=== PATIENT | female | born 1940 | race Caucasian/White ===

== ENCOUNTER 2019-05-29 18:27 | Inpatient (IN) | payer OTHER, MEDICAID ==
[~2019-05-29] VITALS: Ht 172.7 cm; Wt 70.3 kg
[2019-05-29 18:33] VITALS: BP 162/87
[2019-05-29 19:01] LABS: ABSOLUTE LYMPHOCYTES 1.1 thou/uL (0.8-5.3); ABSOLUTE MONOCYTES 1.1 thou/uL (0.0-1.2); ABSOLUTE NEUTROPHILS 9.1 thou/uL (1.6-8.1); BASOPHILS 0.3 %; EOSINOPHILS 0.4 %; HEMATOCRIT 38.7 % (37.0-47.0); HEMOGLOBIN 13.1 gm/dL (12.0-15.0); LYMPHOCYTES 9.8 %; MCH 29.8 pg (26.0-34.0); MCHC 33.9 g/dL (28.0-37.0); MONOCYTES 9.7 %; MPV 9.2 fl. (7.2-11.1); NUCLEATED RBCS 0 /100WBC; PLATELET COUNT* 105 thou/uL (150-400); POLYS 79.8 %; WBC 11.4 thou/uL (4.0-11.0)
[2019-05-29 19:11] LABS: ANION GAP 12 mmol/L (7-16); BUN 15 mg/dL (7-18); CALCIUM 8.8 mg/dL (8.5-10.1); CHLORIDE 103 mmol/L (98-107); CO2 25 mmol/L (21-32); CREATININE 0.8 mg/dL (0.6-1.3); GLUCOSE 113 mg/dL (70-99); INR 1.2; POTASSIUM 3.4 mmol/L (3.5-5.1); PROTIME 12.5 Seconds (9.20-11.50); SODIUM 140 mmol/L (136-145)
[2019-05-29 19:25] LABS: ALBUMIN 3.3 g/dL (3.4-5.0); ALKALINE PHOSPHATASE 358 U/L (46-116); CK-MB MASS 2.1 ng/mL (<0.5-3.6); LIPASE 40 U/L (73-393); MAGNESIUM 1.9 mg/dL (1.8-2.4); NT-PRO BRAIN NAT PEPTIDE 1201 pg/mL (<300); SGOT 130 U/L (15-37); SGPT 245 U/L (30-65); TOTAL PROTEIN 6.7 g/dL (6.4-8.2); TROPONIN-I LEVEL <0.06 ng/mL (<0.06)
--- NOTE | 2019-05-29 19:56 | NUR ---
DILTIAZEM GTT STARTED.
[2019-05-29 20:24] LABS: URINE BLOOD 1+ (Negative); URINE CLARITY CLEAR; URINE COLOR YELLOW; URINE GLUCOSE-RANDOM NEGATIVE (Negative); URINE KETONES NEGATIVE (Negative); URINE LEUKOCYTES-REFLEX TRACE (Negative); URINE NITRITE-REFLEX NEGATIVE (Negative); URINE PROTEIN NEGATIVE (Negative); URINE UROBILINOGEN 0.2 E.U./dl (0.2-1.0)
[2019-05-29 20:25] LABS: URINE BILIRUBIN 2+ (Negative)
[2019-05-29 20:27] LABS: ICTOTEST (BILI CONFIRMATORY) Positive (Negative)
[2019-05-29 20:33] LABS: BACTERIA-REFLEX 1-9 Few /HPF (None Seen); CASTS None Seen /LPF (None Seen); CRYSTALS None Seen /LPF (None Seen); SQUAMOUS 0-3 Few /LPF (0-3); URINE RBC None Seen /HPF (0-2); URINE WBC-REFLEX None Seen /HPF (0-5)
--- NOTE | 2019-05-29 22:30 | NUR ---
PT AWAITING BED AVAILABILITY, HELD IN ER. PT WAS TRANSFERED TO A HOSPITAL BED FOR MORE COMFORT. DILTIAZEM GTT INFUSING, WILL CONTINUE TO MONITOR.
[2019-05-30 01:12] LABS: HEMATOCRIT 38.8 % (37.0-47.0); MCH 29.9 pg (26.0-34.0); MCHC 33.5 g/dL (28.0-37.0); MCV 89.2 fL (80.0-100.0); MPV 10.1 fl. (7.2-11.1); RBC 4.35 mil/uL (4.20-5.00); RDW-CV 14.2 % (10.5-14.5); WBC 10.2 thou/uL (4.0-11.0)
[2019-05-30 01:47] LABS: ALBUMIN 3.2 g/dL (3.4-5.0); CALCIUM 8.8 mg/dL (8.5-10.1); CREATININE 0.8 mg/dL (0.6-1.3); MAGNESIUM 2.1 mg/dL (1.8-2.4); PHOSPHORUS* 2.9 mg/dL (2.5-4.9); POTASSIUM 3.6 mmol/L (3.5-5.1); TOTAL BILIRUBIN 6.9 mg/dL (<0.1-1.0)
[2019-05-30 01:52] VITALS: BP 108/45
--- NOTE | 2019-05-30 07:24 | NUR ---
REPORT TAKEN FROM PATIENCE. SHE UNDERSTANDS ADMISSION AND IS BOARDED. SHE HAS BEEN TO THE RESTROOM THIS AM AND IS REGULATED ON CARDIZEM.
--- NOTE | 2019-05-30 07:41 | NUR ---
NEW ORDERS OBTAINED FROM DR WANG. SURGERY HAS BEEN CONTACTED IN REGARDS TO ERCP ORDER. RADIOLOGY HAS ALSO BEEN NOTIFIED.
--- NOTE | 2019-05-30 08:55 | NUR ---
PATIENT HAS BEEN SEEN BY THE [facility] PHYSICIAN AND BY THE CARDIOLOGY FIRE PREVENTION CAPTAIN.
--- NOTE | 2019-05-30 11:45 | NUR ---
REPORT CALLED TO PACU. PATIENT WAS TAKEN BY TRANSPORTER FOR TESTING AND THEN ON TO SURGERY PER DR WANG. SHE WILL NOT RETURN TO THE ER.
[2019-05-30 11:47] VITALS: BP 143/81
--- NOTE | 2019-05-30 12:21 | EKG ---
[place] [address] ELECTROCARDIOGRAM REPORT Name: AMERICARAVEN Mart Room: [place] [address] ADM IN ..#: [id number] Admission: 05/29/19 Attend Phys: Cameron Orellana MD Discharge: Date of : 36 Report #: [id number] THIS REPORT FOR: //name// [facility] ED Test Date: 2019-05-29 Test Time: 18:37:12 Pat Name: RAVEN CROSS Department: Room: [facility] Gender: F [employer]p [employer]: : 1940 Requested By: Aj Tinoco Order Number: [id number] MD: Gray Ellis Measurements Intervals [place] Rate: 102 P: VA: QRS: -12 QRSD: 72 T: 173 QT: 309 QTc: 403 Interpretive Statements Atrial fibrillation Low voltage, precordial leads Abnormal R-wave progression, early transition Borderline repolarization abnormality No previous ECG available for comparison Electronically Signed On 05-30-2019 12:21:34 CDT by Gray Ellis [email or web address] <ELECTRONICALLY SIGNED> By: Gray Ellis MD, [facility] 05/30/19 [phone] Gray Ellis MD, [facility] /EPI
--- NOTE | 2019-05-30 16:45 | NUR ---
JADA BECERRA GI NBED. SHE DENIES PAIN. AFIB ON MONITOR AND CARDIZEM INFUCING AT 2.5 ML PER HOUR. ECHO IN PROGRESS. AWAITING MEDICATION ORDERS FROM CARIOLOGY FOR AFIB MANAGEMENT. VITAL SIGNS OTHERWISE STABLE. ADMISSION ASSESSMENT AND HISTORY COMPLETED.
--- NOTE | 2019-05-30 17:25 | 2DMMODE ---
[place] [address] 2 D/M-MODE ECHOCARDIOGRAM Name: AMERICARAVEN M Room: [address] IN [facility]#: [id number] Admission: 05/29/19 Attend Phys: Cameron Orellana, Discharge: Date of : 36 Date of Service: 05/30/19 1725 Report #: [id number] THIS REPORT FOR: //name// APPROVED REPORT Study performed: 05/30/2019 16:06:26 EXAM: Comprehensive 2D, Doppler, and color-flow Echocardiogram Patient Location: In-Patient Room #: [facility] Status: routine BSA: 1.86 HR: 71 bpm BP: 143/81 mmHg Rhythm: Atrial Fibrillation Other Information Study Quality: Good Indications Atrial Fibrillation 2D Dimensions IVSd: 13.53 (7-11mm) LVOT Diam: 19.69 (18-24mm) LVDd: 42.82 mm PWd: 10.40 (7-11mm) Ascending Ao: 37.69 (22-36mm) LVDs: 21.25 (25-40mm) Aortic Root: 28.27 mm Volumes Left Atrial Volume (Systole) LA ESV Index: 26.70 mL/m2 Aortic Valve AoV Peak Paul.: 1.71 m/s AO Peak Gr.: 11.71 mmHg LVOT Max P.19 mmHg AO Mean Gr.: 6.52 mmHg LVOT Mean P.42 mmHg LVOT Max V: 1.14 m/s AO V2 VTI: 30.51 cm LVOT Mean V: 0.71 m/s MILLA (VTI): 2.27 cm2 LVOT V1 VTI: 22.74 cm Mitral Valve MV Decel. Time: 148.49 ms MV PHT: 43.06 ms MVA (PHT): 5.11 [place]2 [place] [address] 2 D/M-MODE ECHOCARDIOGRAM Name: RAVEN CROSS Room: [address] IN [facility]#: [id number] Admission: 05/29/19 Attend Phys: Cameron Orellana, Discharge: Date of : 36 Date of Service: 05/30/19 1725 Report #: [id number] TDI Medial E' Paul.: 0.11 m/s Lateral E' Paul.: 0.11 m/s Pulmonary Valve PV Peak Paul.: 0.92 m/s PV Peak Gr.: 3.36 mmHg Tricuspid Valve RAP Estimate: 5.00 mmHg TR Peak Gr.: 30.29 mmHg RVSP: 35.00 mmHg PA Pressure: 35.00 mmHg Left Ventricle The left ventricle is normal size. There is normal LV segmental wall motion. There is normal left ventricular wall thickness. Left ventricular systolic function is normal. LVEF is 65-70%. This study is not technically sufficient to allow evaluation of the LV diastolic function due to atrial fibrillation. Right Ventricle The right ventricle is normal size. The right ventricular systolic function is normal. Atria Left atrium is mildly dilated. Right atrium is mildly dilated. Aortic Valve Mild aortic valve sclerosis. No aortic regurgitation is present. There is no aortic valvular stenosis. Mitral Valve The mitral valve is normal in structure. Mild mitral regurgitation. No evidence of mitral valve stenosis. Tricuspid Valve The tricuspid valve is normal in structure. Moderate tricuspid regurgitation. Mild pulmonary hypertension. Pulmonic Valve The pulmonary valve is normal in structure. There is no pulmonic valvular regurgitation. Great Vessels The aortic root is normal in size. IVC [place] [address] 2 D/M-MODE ECHOCARDIOGRAM Name: RAVEN CROSS Room: [address]#: [id number] Admission: 05/29/19 Attend Phys: Cameron Orellana, Discharge: Date of : 36 Date of Service: 05/30/19 1725 Report #: [id number] collapses >50% with inspiration. Pericardium There is no pericardial effusion. <Conclusion> The left ventricle is normal size. There is normal left ventricular wall thickness. Left ventricular systolic function is normal. LVEF is 65-70%. This study is not technically sufficient to allow evaluation of the LV diastolic function due to atrial fibrillation. Left atrium is mildly dilated. Right atrium is mildly dilated. Mild aortic valve sclerosis. There is no aortic valvular stenosis. Mild mitral regurgitation. Moderate tricuspid regurgitation. Mild pulmonary hypertension. <ELECTRONICALLY SIGNED> By: Rio Owusu MD, FACC 05/30/19 1725 1725 1725 Rio Owusu MD, FACC /INF
--- NOTE | 2019-05-30 19:12 | NUR ---
PICKED UP PT FOR PREVIOUS RN AFTER 1700. PT AFIB ON THE MONITOR, CARDIZEM DRIP STOPPED AND SOTOLOL STARTED. PT HAS POTENTIAL CHOLEY TOMORROW, ONCOMING RN NOTIFIED THAT THE PT SHOULD POTENTIALLY BE NPO AT MIDNIGHT. PT HAS NO SKIN ISSUES AND HAS BEEN GIVEN A CLD. PT HAS JAUNDICED COLORED EYES BUT THIS IS NOT REMARKABLE DUE TO THE ELEVATED LIVER LABS AND POTENTIAL NEED FOR CHOLEY. PT ON 2L NC AT THIS TIME. NO C/O PAIN AT THIS TIME. HOURLY ROUNDING MAINTAINED AFTER PICKING UP THIS PATIENT. WILL SIGN OFF AT THIS TIME
[2019-05-30 19:50] VITALS: BP 128/76
[2019-05-31] VITALS: BP 119/60
[2019-05-31 04:00] VITALS: BP 141/83
[2019-05-31 04:37] LABS: ABSOLUTE LYMPHOCYTES 0.8 thou/uL (0.8-5.3); ABSOLUTE MONOCYTES 0.2 thou/uL (0.0-1.2); ABSOLUTE NEUTROPHILS 5.2 thou/uL (1.6-8.1); BASOPHILS 0.2 %; HEMATOCRIT 42.1 % (37.0-47.0); HEMOGLOBIN 13.7 gm/dL (12.0-15.0); LYMPHOCYTES 13.3 %; MCH 29.4 pg (26.0-34.0); MCHC 32.6 g/dL (28.0-37.0); MONOCYTES 3.9 %; MPV 10.1 fl. (7.2-11.1); NUCLEATED RBCS 0 /100WBC; PLATELET COUNT* 130 thou/uL (150-400); POLYS 82.6 %; RBC 4.67 mil/uL (4.20-5.00); RDW-CV 14.3 % (10.5-14.5); WBC 6.2 thou/uL (4.0-11.0)
[2019-05-31 04:49] LABS: ALBUMIN 3.1 g/dL (3.4-5.0); CALCIUM 9.2 mg/dL (8.5-10.1); CREATININE 1.1 mg/dL (0.6-1.3); POTASSIUM 4.7 mmol/L (3.5-5.1); TOTAL BILIRUBIN 4.8 mg/dL (<0.1-1.0); TOTAL PROTEIN 7.1 g/dL (6.4-8.2)
--- NOTE | 2019-05-31 07:39 | NUR ---
PT CARE ASSUMED AT 1930. SAT MAINTAINED IN RA. PT HAVING HALLUCINATIONS DURING THE NIGHT TIME, SAYS SHE SEES A BABY AND SUPERVISOR VENDOR QUALITY IN HER ROOM. PT IMPULSIVE, PULLED HER IV OUT, INFORMED PHYSICIAN, MEDICATION GIVEN PER EMAR. CALL LIGHT WITHIN REACH AND BED IN LOW POSITION. HOURLY ROUNDING DONE FOR PT SAFETY.
[2019-05-31 08:00] VITALS: BP 151/87
--- NOTE | 2019-05-31 12:09 | CON ---
[address] [address] CONSULTATION Name: RAVEN CROSS Room: [address] IN .R.#: [id number] Admission: 05/29/19 Attend Phys: Cameron Orellana MD Discharge: Date of : 38 Report #: [id number] THIS REPORT FOR: //name// CC: Cameron Villanueva DICTATED BY: Landy Young [facility] DATE OF SERVICE: 05/30/2019 Please note at the time of this dictation, the patient was seen and physically examined by myself. HISTORY OF PRESENT ILLNESS: This is an 78-year-old female who had been having issues starting on 05/28/2019 with this epigastric and chest pain. She stated it was very significant and severe and when she went to her doctor's office the following day, he referred her up to be seen in the Emergency Room because on her EKG, it showed that she had some atrial fibrillation. However, the patient was no longer having any abdominal pain after she took some [place], which helped relieve her discomfort. It was noted that she was in atrial fibrillation at that time. She denies any nausea or vomiting or any fever or chills at this time. She states that she has just very mild epigastric pain if you press very hard on her abdomen. She has never seen a GI doctor in the past for any upper or lower scopes done. She states her bowel habits are fairly normal, regular on a daily basis, soft and formed with no evidence of any bright red blood or melena. Her weight has been stable and her appetite has been good. ALLERGIES: No known drug allergies. MEDICATIONS FROM HOME: None. PAST MEDICAL HISTORY: None. PAST SURGICAL HISTORY: None. FAMILY HISTORY: Mother, breast cancer. SOCIAL HISTORY: Denies any alcohol, tobacco or illegal drug use. REVIEW OF SYSTEMS: Twelve-point review of systems is essentially negative except what is mentioned in the HPI. PHYSICAL EXAMINATION: VITAL SIGNS: Temperature 36.8, pulse 76, respirations 18, blood pressure 143/81. HEART: Slight irregular [place] [address] CONSULTATION Name: RAVEN CROSS Room: [address] IN [facility]#: [id number] Admission: 05/29/19 Attend Phys: Cameron Orellana MD Discharge: Date of : 38 Report #: [id number] LUNGS: Clear. ABDOMEN: Soft, positive bowel sounds in all 4 quadrants with some very slight epigastric tenderness noted to palpation. Eyes slight icterus noted. LABORATORY DATA: GFR is 69. Total bilirubin on admission was 7, she is 6.9 now. Alkaline phosphatase was 358, she is now 349. ALT was 245, she is now 220. AST was 130, she is now 108. BNP was 1201. PT 12.5, INR 1.2. Hemoglobin 13.1, white count is 11.4, and platelets 105. CT shows two stones in the CBD with dilated intra and extrahepatic ducts with marked cholelithiasis noted in the gallbladder. IMPRESSION: 1. Abdominal pain. 2. Chest pain. 3. Elevated LFTs. 4. Choledocholithiasis. 5. Atrial fibrillation, new onset. 6. Family history, mother with breast cancer. PLAN: 1. EGD, ERCP today with Dr. Alex. 2. Further recommendations to be made once the procedure has been performed. Thank you for allowing us to participate in this patient's care. Please do not hesitate to call with any questions in regard to this consult. <ELECTRONICALLY SIGNED> By: Moshe Alex DO 05/31/19 1209 1303 [id number] Alex DO /nt
[2019-05-31 12:16] VITALS: BP 171/88
--- NOTE | 2019-05-31 15:23 | NUR ---
ASSUMED PT CARE REPORT RECEIVED FROM NURSE. PT IS AOX0, CONFUSED, FORGETFUL, AGITATED. ON RA AND SATURATION IS 96% ON. VSS. PT TO HAVE SX DONE TOMORROW. CONSENT SIGNED BY SON NARA WHO VISITED PT TODAY. PT HAS BEEN VERY AGITATED DURING THE WHOLE DAY. PT PULLED HER CLOTHES OFF, REMOVED IV LINE. IV LINE REPLACED IN RIGHT FOREARM. ZOSYN INFUSING. PT HEART RATE IS CONTROLLED. TRACING AFIB ON PUBLIC STENOGRAPHER. PT TOLORATED CLEAR LIQUID DIET WELL TODAY. PT WAS MOVED CLOSER TO NURSING STATION. PSYCH CONSULTED. NEW RECOMMENDATIONS GIVEN. THESE RECOMMENDATIONS WERE READ BACK TO HOSPITALIST WHO APPROVED THEM ALL. ALSO THEY WERE WRITTEN IN PAPER CHART. BED ALARM ON, FALL PRECAUTIION IN PLACE. WILL CONTINUE TO MONITOR PT
[2019-05-31 16:00] VITALS: BP 110/75
[2019-05-31 20:10] VITALS: BP 113/69
[2019-06-01] VITALS (8 sets, daily range): BP systolic 111–146; BP diastolic 70–94
[2019-06-01 04:58] LABS: HEMATOCRIT 39.9 % (37.0-47.0); MCH 29.1 pg (26.0-34.0); MCHC 32.7 g/dL (28.0-37.0); MCV 88.9 fL (80.0-100.0); MPV 10.3 fl. (7.2-11.1); RBC 4.48 mil/uL (4.20-5.00); RDW-CV 13.7 % (10.5-14.5); WBC 12.2 thou/uL (4.0-11.0)
[2019-06-01 05:05] LABS: ALBUMIN 2.9 g/dL (3.4-5.0); CREATININE 0.9 mg/dL (0.6-1.3); POTASSIUM 3.9 mmol/L (3.5-5.1); TOTAL BILIRUBIN 2.6 mg/dL (<0.1-1.0); TOTAL PROTEIN 6.4 g/dL (6.4-8.2)
--- NOTE | 2019-06-01 06:33 | NUR ---
PT CARE ASSUMED AT 1930. SAT MAINTAINED IN RA. PT IS CONFUSED. MUMBLES, SPEECH NOT UNDERSTANDABLE MOST OF THE TIME. CALL LIGHT WITHIN REACH AND BED IN LOW POSITION. HOURLY ROUNDING DONE FOR PT SAFETY.
--- NOTE | 2019-06-01 10:46 | NUR ---
MET WITH PT AND SON/NARA. PT DROWSY, TO HAVE SURGERY LATER TODAY. SON ANSWERED QUESTIONS, STATES HE IS PRIMARY DPOA, ASKED THAT HE BRING IN PAPERWORK. PT LIVES ALONE, IS NORMALLY FAIRLY INDEPENDENT. SON HAS NOTICED SOME STM LOSS RECENTLY AND TOOK HER CAR AWAY. HE LIVES 2 BLOCKS AWAY AND ASSISTS WITH ANY NEEDS. PT USES NO EQUIPMENT AND IS INDEPENDENT WITH ADLS. SON DRIVES THE How do you roll? BUS IN [place] AND IS ABLE TO ASSIST HER. PT HASN'T HAD HH OR BEEN TO SNF. IF SNF NEEDED, HE PREFERS [facility]. OPEN TO HH ALSO. WILL FOLLOW AND ASSIST WITH ID'ING NEEDS AFTER SURGERY
--- NOTE | 2019-06-01 11:12 | EKG ---
[place] [address] ELECTROCARDIOGRAM REPORT Name: RODRIGUEZ CROSSCE Mart Room: [address] IN [facility]#: [id number] Admission: 05/29/19 Attend Phys: Cameron Orellana MD Discharge: Date of : 38 Report #: [id number] THIS REPORT FOR: //name// [facility] Test Date: 2019-06-01 Test Time: 09:56:23 Pat Name: RAVEN CROSS Department: Room: [facility] Gender: F Control Officer Manager: : 1940 Requested By: Jaimie Champagne Order Number: [id number] Reading MD: Kang Howard Measurements Intervals [place] Rate: 69 P: MD: QRS: -6 QRSD: 92 T: 4 QT: 434 QTc: 465 Interpretive Statements Atrial fibrillation Low voltage, precordial leads Borderline prolonged QT interval Compared to ECG 05/29/2019 18:37:12 rate slowed Electronically Signed On 06-01-2019 11:12:17 CDT by Kang Howard [email or web address] <ELECTRONICALLY SIGNED> By: Kang Howard MD, [facility] 06/01/19 1112 [id number] Kang Howard MD, [facility] /EPI
--- NOTE | 2019-06-01 17:41 | NUR ---
ASSESSMENT COMPLETE. PT ALERT AND ORIENTED X1. PT CONFUSED THIS AM. PT GIVEN PO CARDIZEM. AFIB ON TELE MONITOR. INCONT. PT LEFT FOR SURGERY AT 1400. VSS. SEE ASSESSMENT AND VITALS FOR OTHER DETAILS. CALL LIGHT WITHIN REACH, WILL CONTINUE PLAN OF CARE
[2019-06-02] VITALS (14 sets, daily range): BP systolic 110–153; BP diastolic 50–95
[2019-06-02 04:32] LABS: HEMATOCRIT 39.6 % (37.0-47.0); HEMOGLOBIN 13.3 gm/dL (12.0-15.0); MCH 29.9 pg (26.0-34.0); MCHC 33.6 g/dL (28.0-37.0); MCV 88.9 fL (80.0-100.0); MPV 10.1 fl. (7.2-11.1); RBC 4.45 mil/uL (4.20-5.00); RDW-CV 13.9 % (10.5-14.5); WBC 8.2 thou/uL (4.0-11.0)
[2019-06-02 04:55] LABS: ALBUMIN 2.7 g/dL (3.4-5.0); CALCIUM 8.8 mg/dL (8.5-10.1); CREATININE 0.9 mg/dL (0.6-1.3); POTASSIUM 4.1 mmol/L (3.5-5.1); TOTAL BILIRUBIN 1.8 mg/dL (<0.1-1.0); TOTAL PROTEIN 6.2 g/dL (6.4-8.2)
--- NOTE | 2019-06-02 10:52 | NUR ---
ASSUMED PT CARE REPORT RECEIVED FROM NURSE. PT IS AOX2. TRACING AFIB ON RETIREMENT MANAGER. ON RA. PT SEEMS SEDATED. SLURRED SPEECH NOTICED. NIH PERFORMED SCORE OF 2. DR NOTIFIED. DR SAYS WILLL MONITOR FOR FURTHER SYMPTOMS AND POSSIBLY CONSIDER CT OF HEAD LATER. PT GOT OUT OF BED TO CHAIR. INCONTENENT OF URINE. JAUNDICE SKIN DISCOLORATION. URINE COLOR IS DARK YELLOW. PT STATES SHE WAS THIRSTY. WATER GIVEN. TOLORATED WELL. PT THEN GOT MORE AWAKE LATE MORNING. PT WORKED WITH PHYSICAL THERAPIST WITH A WALK[employer]. HEART RATE RANGE IS BETWEEN 35 AND 70 ON RETIREMENT MANAGER. CARDIOLOGY NOTIFIED. ORDER RECEIVED TO HOLD CARDIZEM IF HEART RATE LESS THAN 60. HEART GETS IN THE 50 S 40S THIS AM. SO CARDIZEM NOT GIVEN. PT CURRENTLY SITTING IN CHAIR. CHAIR ALARM ON. PT TOLORATES FOOD CLEAR LIQUID DIET WELL. SX SITES ARE INTACT. NO ABDOMINAL PAIN. WILL CONTINUE TO MONITOR
--- NOTE | 2019-06-02 18:17 | NUR ---
WHEEZING NOTICED THIS AFTERNOON, PT IS SOA WITH EXERTION. MADE AWARE. NEW ORDER FOR CHEST XRAY AND PRN BREATHING TREATMENT RECEIVED. PT HAD A BREATHING TREATMENT IN ROOM THIS AFTERNOON AT AROUND 1800 PER RT. PT CONSUMED ALL ADVANCED DIET WITHOUT COMPLAINT OF PAIN, N/V. WILL CONTINUE TO MONITOR
[2019-06-03 00:23] VITALS: BP 136/78
[2019-06-03 03:52] LABS: HEMATOCRIT 39.4 % (37.0-47.0); MCH 29.5 pg (26.0-34.0); MCHC 32.9 g/dL (28.0-37.0); MCV 89.6 fL (80.0-100.0); MPV 10.1 fl. (7.2-11.1); RBC 4.4 mil/uL (4.20-5.00); RDW-CV 13.9 % (10.5-14.5); WBC 11.3 thou/uL (4.0-11.0)
[2019-06-03 04:07] LABS: ALBUMIN 2.7 g/dL (3.4-5.0); CALCIUM 8.7 mg/dL (8.5-10.1); CREATININE 0.8 mg/dL (0.6-1.3); POTASSIUM 3.3 mmol/L (3.5-5.1); TOTAL BILIRUBIN 1.4 mg/dL (<0.1-1.0); TOTAL PROTEIN 6.1 g/dL (6.4-8.2)
[2019-06-03 04:08] VITALS: BP 143/79
--- NOTE | 2019-06-03 06:40 | NUR ---
APPROX 2000 PT FOUND ON FLOOR. PT DENIED PAIN. PT DENIED HITTING HEAD OR NECK. HOUSE SUP NOTIFED. PROVIDER NOTIFED ORDERS RECIEVED. FAMILY NOTIFED STATED NO CONCERNS.NEURO CHECKS AND VITALS COMPLETED CHARTED. ASSESSMENT COMPLETE. VSS. PT INCREASED CONFUSION THROUGH THE NIGHT, REFUSED 0000 DOSE OF CARDIZEM, PT RETURNED TO BASELINE IN AM APPROX 0600.
[2019-06-03 08:00] VITALS: BP 144/72
[2019-06-03 12:07] VITALS: BP 122/62
[2019-06-03 16:29] VITALS: BP 146/71
[2019-06-03 19:40] VITALS: BP 162/97
[2019-06-04] VITALS: BP 150/88
[2019-06-04 04:00] VITALS: BP 154/89
[2019-06-04 05:05] LABS: HEMATOCRIT 41.2 % (37.0-47.0); HEMOGLOBIN 13.8 gm/dL (12.0-15.0); MCHC 33.5 g/dL (28.0-37.0); MCV 89.5 fL (80.0-100.0); MPV 10.2 fl. (7.2-11.1); NUCLEATED RBCS 0 /100WBC; PLATELET COUNT* 137 thou/uL (150-400); RBC 4.61 mil/uL (4.20-5.00); WBC 9.3 thou/uL (4.0-11.0)
[2019-06-04 05:30] LABS: ALBUMIN 2.7 g/dL (3.4-5.0); CALCIUM 8.7 mg/dL (8.5-10.1); CREATININE 0.7 mg/dL (0.6-1.3); POTASSIUM 3.3 mmol/L (3.5-5.1); TOTAL BILIRUBIN 1.3 mg/dL (<0.1-1.0); TOTAL PROTEIN 6.2 g/dL (6.4-8.2)
[2019-06-04 05:53] LABS: ABSOLUTE EOSINOPHILS 0.2 thou/uL (0.0-0.7); ABSOLUTE MONOCYTES 1.1 thou/uL (0.0-1.2); ANISOCYTOSIS 1+; PLATELET ESTIMATE DECREASED; POIKILOCYTOSIS 1+
--- NOTE | 2019-06-04 06:49 | NUR ---
VSS. SEE MAR. SEE CHARTING. FALL PRECAUTIONS IN PLACE. HOURLY ROUNDING FOR SAFETY.
[2019-06-04 08:00] VITALS: BP 152/90
[2019-06-04] MEDS ORDERED: LEVAQUIN 500 M500 M2 PO (10:23)
[2019-06-04] MEDS ORDERED: ELIQUIS5 MG PO (10:23)
[2019-06-04] MEDS ORDERED: APAP650 PO (10:23)
[2019-06-04] MEDS ORDERED: CARDIZEM60 MG PO (10:23)
--- NOTE | 2019-06-04 11:41 | NUR ---
DISCUSSED WITH , PT HAS ORDERS TO DC TO SNF. MET WITH PT AND SPOKE WITH SON/NARA OVER THE PHONE. [facility], THEY ARE NOT IN NETWORK WITH INSURANCE. SON ASKED THAT IT BE DISCUSSED WITH PT BUT HE PREFERS EITHER [facility] IN [place] OR [facility] OR ONE IN [place]. PT STATED SHE PREFERRED [facility] OR [facility]. CALLED AND FAXED REFERRAL TO [facility], AWAIT DECISION AND FACILITY WILL HAVE TO OBTAIN INSURANCE AUTH
[2019-06-04 11:53] VITALS: BP 133/82
--- NOTE | 2019-06-04 12:29 | OP ---
[address] [address] OPERATIVE REPORT Name: AMERICARAVEN Cevallos Room: [address] IN .R.#: [id number] Admission: 05/29/19 Attend Phys: Cameron Orellana MD Discharge: Date of : 38 Report #: [id number] THIS REPORT FOR: //name// [facility]: [facility] DICTATED BY: Dimas Baer DO DATE OF SERVICE: 06/01/2019 PREOPERATIVE DIAGNOSES: Hyperbilirubinemia, transaminitis and choledocholithiasis with cholecystitis and cholelithiasis. POSTOPERATIVE DIAGNOSES: Hyperbilirubinemia, transaminitis and choledocholithiasis with cholecystitis and cholelithiasis. PRIMARY SURGEON: Dr. Dutch Cruz. CO-SURGEON: Dimas Baer, PGY3. TECHNICIAN'S HELPER: Keyur Sauceda, PGY-3. OPERATION PERFORMED: Laparoscopic cholecystectomy with intraoperative cholangiogram. ANESTHESIA TYPE: General. ESTIMATED BLOOD LOSS: 20 mL. SPECIMEN REMOVED: Gallbladder. COMPLICATIONS: None. The patient tolerated the procedure well. DISPOSITION: PACU to floor. INDICATIONS FOR PROCEDURE: The patient is a pleasant 78-year-old female who presented to the ED with chief complaint of upper abdominal pain. The patient was found to have a significantly elevated bilirubin of 7 with a direct of 5.[address] showed choledocholithiasis with cholecystitis. The patient was subsequently taken to the OR with GI for ERCP. Three 8 mm stones were removed and sphincterotomy was performed. The patient was transferred to the floor for ongoing care to monitor labs in preparation for laparoscopic cholecystectomy with intraoperative cholangiogram. The patient subsequently developed agitation and confusion. I recommended proceeding with laparoscopic cholecystectomy with intraoperative cholangiogram. The patient's [place] [address] OPERATIVE REPORT Name: AMERICARAVEN Cevallos Room: [address]#: [id number] Admission: 05/29/19 Attend Phys: Cameron Orellana MD Discharge: Date of : 38 Report #: [id number] OPERATIVE TECHNIQUE: The patient was again seen and examined in preoperative holding. Fully informed written consent was obtained from the patient's son, full discussion of procedure, alternatives, risks and possible complications discussed include but not limited to bleeding, infection, postoperative pain, scarring, hernia, conversion to open procedure, bile leak, biloma, injury to other abdominal organs and anesthesia risks. The patient understands risks and agreed to proceed with surgery. The patient was subsequently transported to the operating room suite and placed on the operating table in supine position. At this time, Anesthesia induced general anesthesia via endotracheal intubation. This was successful. SCDs were placed to bilateral lower extremity calves. Footboard was placed at the patient's feet. Arms were placed on arm boards out at the sides. Grounding pads were placed to right lateral thigh. Preoperative antibiotics were not indicated as the patient was already receiving antibiotics on the floor. The patient was prepped and draped using standard sterile fashion. Timeout was performed prior to onset of procedure, began by making a vertical incision superior to the umbilicus using open Brady technique. We dissected down through subcutaneous tissue until we reached the fascia. The fascia was scored using electrocautery and grasped with bilateral Kochers and elevated. Fascia was transected using electrocautery and hemostat was used to teague the peritoneum. Two dkvctb-vv-[id number] 0 Vicryl sutures were placed in the apices of the fascia. A 5 mm Brady trocar was placed in the abdomen. Abdomen was insufflated first using low flow then high flow. A 5 mm 0-degree laparoscopic camera was placed in the abdomen, noting no injury to underlying structures upon entry into the abdomen and turned our attention to the right upper quadrant, noted a gallbladder with adhesions and a lot of fibrous inflammatory changes. The patient was placed in reverse Trendelenburg with left side down, a 10 mm trocar was placed in the epigastric region. Two additional 5 mm trocars were placed in the right upper quadrant. The gallbladder was grasped with locking wavy grasper and elevated. Inflammatory adhesions were taken down using electrocautery. Gallbladder fundus was grasped. Marcelino's pouch was located, grasped with blunt grasper, electrocautery and blunt dissection with a Maryland grasper was used starting on the lateral aspect of the gallbladder until the cystic duct was noted. ICG Firefly was also used to delineate the cystic duct and common bile duct. Cystic duct was dissected out circumferentially. A 10 mm clip was placed on the proximal aspect of this. A 14-gauge Angiocath was placed in the epigastric region. Cholangiogram catheter was passed through the Angiocath. Cystic duct was opened using the laparoscopic scissors and catheter placed into the cystic duct. Next, a C-arm was brought on to the field under direct visualization of fluoroscopy. Contrast dye was placed at the cystic duct noting good filling of the biliary tree with free flow of contrast into the duodenum. Once this was performed, there was noted to be no obstruction or obvious stones. The C-arm was removed. The gallbladder was regrasped, catheter was removed. Additional three 10 mm clips were [place] [address] OPERATIVE REPORT Name: RAVEN CROSS Room: [address] IN [facility]#: [id number] Admission: 05/29/19 Attend Phys: Cameron Orellana MD Discharge: Date of : 38 Report #: [id number] duct. This was transected using laparoscopic scissors. Electrocautery and [place] dissection was carried out to locate the cystic artery. This was dissected out circumferentially as well. Two clips were placed one distally and one proximally and this was transected using laparoscopic scissors. Next, the gallbladder was removed from the gallbladder fossa using electrocautery. Hemostasis of the gallbladder was achieved. The gallbladder was then placed into a 5 mm EndoCatch bag. Clips were again visualized noting no hemorrhaging or bile leak. The patient was leveled. Abdomen was desufflated under direct visualization, 5 mm and 10 mm epigastric trocars were removed. Next Eder trocar was removed and the gallbladder was removed through the umbilical incision. Fascia was again elevated and closed using an additional 2 vclwqa-xj-wvevr 0 Vicryl sutures. The skin was closed using a running 4-0 Monocryl. A 10 mm and 5 mm port sites were closed using interrupted 4-0 Monocryl. Abdomen was cleansed using wet and dry lap. A 30 mL of 0.5% Marcaine was used for local anesthetic. Sterile dressing was applied with Mastisol, Steri-Strips, Tegaderms, 4 x 4s and Medipore tape. The patient tolerated the procedure well and was extubated in the operating room and transported to PACU in stable condition after a brief recovery. Anesthesia is planning to return to surgical telemetry for ongoing monitoring. <ELECTRONICALLY SIGNED> By: Dutch Cruz DO 06/04/19 1229 1704 1801Apriscila Cruz DO /nt
--- NOTE | 2019-06-04 13:39 | NUR ---
ASSUMED PT CARE AT 0800, A0X3, UP WITH ASSIST. O2 SAT 90'S RA. TRACING AFIB, BBB ON TELE. DENIES PAIN. PT FOR DISCHARGED IN SNF. PT FOR ISOLATION ON CDIFF PENDING RESULT. PT LAST BM 06/04/19. LUNG SOUND CLEAR. VSS, AM ASSESSMENT CHARTED. FALL PRECAUTION, HOURLY ROUNDING, CALL LIGHT WITHIN REACH. WILL CONTINUE TO MONITOR.
[2019-06-04 15:08] LABS: MAGNESIUM 1.8 mg/dL (1.8-2.4); POTASSIUM 4.2 mmol/L (3.5-5.1)
[2019-06-04 15:51] VITALS: BP 122/77
--- NOTE | 2019-06-04 18:10 | NUR ---
PT STILL TRACING AFIB, BBB ON TELE, AOX2, CONFUSED. PT NEGATIVE FOR CDIFF. ON ELECTROLYTE PROTOCOL. MAG AND POTTASIUM IS LOW, MEDS GIVEN, REDRAW AT 1500 CAME BACK ON NORMAL RANGE. PT FOR DISCHARGE TO SNF TOMORROW. VSS, FALL PRECAUTION. CALL LIGHT WITHIN REACH. WILL CONTINUE TO MONITOR.
[2019-06-04 19:30] VITALS: BP 148/82
[2019-06-05] VITALS: BP 137/78
[2019-06-05 04:00] VITALS: BP 157/96
[2019-06-05 04:36] LABS: HEMATOCRIT 40.4 % (37.0-47.0); HEMOGLOBIN 13.6 gm/dL (12.0-15.0); MCH 29.9 pg (26.0-34.0); MCHC 33.6 g/dL (28.0-37.0); MPV 9.8 fl. (7.2-11.1); RBC 4.54 mil/uL (4.20-5.00); RDW-CV 13.7 % (10.5-14.5); WBC 9.5 thou/uL (4.0-11.0)
[2019-06-05 04:41] LABS: CREATININE 0.7 mg/dL (0.6-1.3); POTASSIUM 3.9 mmol/L (3.5-5.1)
--- NOTE | 2019-06-05 07:00 | NUR ---
VSS. SEE MAR. SEE CHARTING. SEE MAR. FALL PRECATUIONS IN PLACE. HOURLY ROUNDING FOR SAFETY.
[2019-06-05 08:00] VITALS: BP 140/81
--- NOTE | 2019-06-05 11:31 | NUR ---
ASSUMED PT CARE AT 0800, AOX2, CONFUSED. UP WITH ASSIST. O2 SAT 90'S RA. DENIES PAIN. TRACING AFIB ON TELE. PT LUNG SOUND CLEAR, LAST BM TODAY. PT WAITING FOR PLACEMENT SNF. VSS, AM ASSESSMENT CHARTED. MEDS GIVEN PER MAR. CALL LIGHT WITHIN REACH. BED ALARM, FALL PRECAUTION. WILL CONTINUE TO MONITOR.
[2019-06-05 12:12] VITALS: BP 149/79
--- NOTE | 2019-06-05 12:22 | NUR ---
CONTINUE TO FOLLOW, CALL TO [facility], CONTINUE TO AWAIT INS AUTH FOR SNF. DISCUSSED WITH DR DEVLIN, MEDS ADJUSTED TODAY.
--- NOTE | 2019-06-05 14:27 | NUR ---
Nutrition: Pt admitted with afib. Awaiting discharge to SNF. Labs, RX, hx noted. +BM today. Wt: 160#. Low fat diet ordered. Seen for LOS. Pt has some confusion. No nutrition concerns at this time. Low risk.
[2019-06-05 16:24] VITALS: BP 144/81
--- NOTE | 2019-06-05 18:07 | PATH ---
[address] [address] PATHOLOGY RPT PROCEDURE Name: JACQUIE CROSS Room: [address] IN ..#: [id number] Admission: 05/29/19 Date of : 36 Discharge: Report #: [id number] Path Case #: [id number] LCA Accession Number: [id number] . 01 Material submitted: . gallbladder - GALLBLADDER . 01 Clinical history: . Chronic cholecystitis with cholelithiasis and choldedoleclitis . 02 Diagnosis: Gallbladder: - Chronic cholecystitis and cholelithiasis. (AFSANEH/db; 06/05/2019) LBQ/06/05/2019 . 02 Electronically signed: . Jack Nichols MD, Pathologist NPI- [id number] . 01 Gross description: . The specimen is received in formalin, labeled "Black, Jacquie, gallbladder", is an intact gallbladder measuring 6.0 cm in length and 2.0 cm in maximum diameter with a qureshi-sheikh serosa. The cystic duct is patent. The gallbladder lumen contains green-yellow bile and multiple dark brown irregularly surfaced calculi and its fragments measure 3.4 x 2.5 x 1.2 cm in aggregate. The mucosa is velvety green with no cholesterolosis. The wall is 0.2 cm in average thickness. Representatively submitted in A1. ([facility]; 06/04/2019) SHS/SHS . 02 Pathologist provided ICD-10: K80.10 . 02 CPT . 158743 Specimen Comment: A courtesy copy of this report has been sent to Specimen Comment: [phone], , . Specimen Comment: Report sent to ,DR RAMON / DR MARCANO Performed at: [address], [place], [place] [address] MD Paco Eagle MD Phone: [phone] Performed at: [address] [facility] [address] [address], [place], [place] [id number] MD Jack Nichols MD Phone: [phone]
--- NOTE | 2019-06-05 18:39 | NUR ---
PT STILL CONFUSED. AFIB ON TELE. PT INCONTINENT OF URINE. PT PULL OUT IV, INSERTED NEW IV ON R HAND. FALL RISK PRECAUTION, BED ALARM. HOURLY ROUNDING Q2 TURN CALL LIGHT WITHIN REACH. WILL CONTINUE TO MONITOR.
[2019-06-05 21:09] VITALS: BP 163/85
[2019-06-06] VITALS: BP 141/84
[2019-06-06 04:00] VITALS: BP 146/84
--- NOTE | 2019-06-06 07:45 | NUR ---
PT IS ABLE TO COMMUNICATE HER NEEDS TO STAFF WITH SOME DIFFICULTY; SHE IS OFTEN CONFUSED AT NIGHT AND THINKS SHE IS AT HOME. SHE HAS DENIED THE NEED FOR PAIN MEDICATION UP TO THIS TIME.
[2019-06-06 07:55] VITALS: BP 152/92
[2019-06-06 11:30] VITALS: BP 137/63
[2019-06-06] MEDS ORDERED: IPRAT-ALBUT 0.5-3 ML INH (13:41)
[2019-06-06] MEDS ORDERED: DILTIAZEM 24HR180 M3 PO (13:41)
[2019-06-06] MEDS ORDERED: PROTONIX40 M1 PO (13:51)
--- NOTE | 2019-06-06 14:51 | NUR ---
PT A/O TO SELF AND PLACE. TELE TRACKING AFIB AND ALL VSS ON ROOM AIR. DENIES CP, SOA. ABD LAP SITES WNL. PT HAD DARK, BLOODY URINE THIS AFTERNOON- MD AWARE AND DC ON HOLD. EDUCATED ON SAFETY AND PLAN OF CARE. PLEASE SEE ASSESSMENT FOR ADDITIONAL INFORMATION. WILL CONT TO MONITOR
--- NOTE | 2019-06-06 14:57 | NUR ---
GULLET SLITTER INFORMED BY THE RN IN-CHARGE OF THE PATIENT THAT THE PATIENT'S D/C HAS BEEN PUT ON HOLD FOR TODAY. D/C GAGGERMAN INFORMED PATIENT'S SON OF THIS AND HE IS IN AGREEMENT. [facility] INFORMED WELL, AND ARE ABLE TO ACCEPT THE PATIENT TOMORROW. CM WILL REMAIN AVAILABLE TO ASSIST AND FOLLOW NEEDED.
[2019-06-06 15:03] LABS: URINE BLOOD 3+ (Negative); URINE CLARITY CLOUDY; URINE COLOR BROWN; URINE GLUCOSE-RANDOM NEGATIVE (Negative); URINE KETONES NEGATIVE (Negative); URINE LEUKOCYTES-REFLEX NEGATIVE (Negative); URINE PROTEIN 2+ (Negative); URINE UROBILINOGEN 0.2 E.U./dl (0.2-1.0)
[2019-06-06 15:07] LABS: ICTOTEST (BILI CONFIRMATORY) Negative (Negative); URINE BILIRUBIN 1+ (Negative); URINE NITRITE-REFLEX POSITIVE (Negative)
[2019-06-06 15:13] LABS: MUCUS None Seen strn/LPF (None Seen); SQUAMOUS 0-3 Few /LPF (0-3); URINE RBC >20 Many /HPF (0-2); URINE WBC-REFLEX 0-5 Rare /HPF (0-5)
[2019-06-06 15:15] LABS: BACTERIA-REFLEX 1-9 Few /HPF (None Seen); CASTS None Seen /LPF (None Seen); CRYSTALS None Seen /LPF (None Seen); YEAST-REFLEX Present (None Seen)
[2019-06-06 15:35] VITALS: BP 119/74
[2019-06-06 21:10] VITALS: BP 114/65
[2019-06-07] VITALS: BP 154/81
[2019-06-07 04:00] VITALS: BP 134/69
[2019-06-07 08:00] VITALS: BP 133/66
--- NOTE | 2019-06-07 08:01 | NUR ---
PT IS ABLE TO COMMUNICATE HER NEEDS TO STAFF WITH SOME MINOR DIFFICULTY; SHE IS FORGETFUL AND CONFUSED AT TIMES; THIS PAST SHIFT SHE WAS LESS SO THAN THE PREVIOUS NIGHT. SHE IS STILL VOIDING CONSIDERABLE AMOUNTS OF BLOODY URINE UP TO THIS TIME, MD IS AWARE.
[2019-06-07 08:07] LABS: ABSOLUTE EOSINOPHILS 0.1 thou/uL (0.0-0.7); ABSOLUTE LYMPHOCYTES 1.7 thou/uL (0.8-5.3); ABSOLUTE MONOCYTES 1.7 thou/uL (0.0-1.2); BASOPHILS 0.1 %; EOSINOPHILS 0.8 %; HEMATOCRIT 39.6 % (37.0-47.0); HEMOGLOBIN 13.5 gm/dL (12.0-15.0); LYMPHOCYTES 13.5 %; MCH 30.3 pg (26.0-34.0); MCV 88.9 fL (80.0-100.0); MONOCYTES 13.8 %; NUCLEATED RBCS 0 /100WBC; PLATELET COUNT* 144 thou/uL (150-400); POLYS 71.8 %; RBC 4.46 mil/uL (4.20-5.00); RDW-CV 14.2 % (10.5-14.5); WBC 12.5 thou/uL (4.0-11.0)
[2019-06-07 08:12] LABS: CALCIUM 9.4 mg/dL (8.5-10.1); CREATININE 0.8 mg/dL (0.6-1.3); POTASSIUM 4.1 mmol/L (3.5-5.1)
[2019-06-07 12:28] VITALS: BP 88/53
[2019-06-07] MEDS ORDERED: AUGMENTIN 875-1 EACH PO (12:29)
[2019-06-07] MEDS ORDERED: CEFDINIR300 MG PO (12:32)
[2019-06-07 13:50] VITALS: BP 123/55
--- NOTE | 2019-06-07 13:51 | NUR ---
ASSUMED PT CARE REPORT RECEIVED FROM NURSE PT IS AOX2 CONFUSED AND FORGETFUL. ON RA. O2 SATURATION IS 97%. VSS.SEE CHART. PT WORKED WITH PT /OT TODAY. NO COMPLAINT OF PAIN, NO N/V. ABDOMEN DRESSINGS LOOK INTACT. NO DIARRHEA. PT URINE IS DARK MARY COLOR THIS AM. PT WENT FOR CHEST XRAY. CHEST XRAY IS INTACT. IV ABX GIVEN. AFIB ON STOCK REPAIRER. HEART RATE CONTROLLED. DISCHARGE ORDER RECEIVED. PT IS TO GO TO [facility]. SPD MANAGER TIME IS BETWEEEN 3 AND 4 PM/ WILL CALL FOR REPORT.
--- NOTE | 2019-06-07 14:05 | NUR ---
REPORT GIVEN TO LYDIA FROM [facility]
--- NOTE | 2019-06-07 14:30 | NUR ---
ADVERTISING WRITER INFORMED THAT THE PATIENT IS READY TO D/C TODAY TO [facility] SN[facility]. D/C CYLINDER HONER SPOKE TO DANELLE WITH ADMISSIONS TO INFORM OF THIS. D/C CYLINDER HONER FAXED PATIENT'S D/C ORDERS, AND ARRANGED TRANSPORT WITH [facility] FOR [id number]. D/C CYLINDER HONER INFORMED THE PATIENT AND HER SON OF THE PATIENT'S TIME OF TRANSPORT AND BOTH ARE IN AGREEMENT. D/C CYLINDER HONER INFORMED OF THE PATIENT'S TIME OF TRANSFER AND WHERE TO CALL REPORT. RN IN AGREEMENT. CM WILL REMAIN AVAILABLE TO ASSIST AND FOLLOW NEEDED. [facility] PHONE: [phone] FAX: [phone]
== END 2019-06-07 15:30 | DRG 417 ==
LOC: M.ERS 18:27 → M.2W 21:54 → M.TBA-ER 21:54 → M.2W 05-30 16:14
PROVIDERS: Emergency Medicine; Family Medicine; Internal Medicine; Surgery; ADMIT Internal Medicine
DX: K80.62 Calculus of gallbladder and bile duct with acute cholecystitis without obstruction (principal); J69.0 Pneumonitis due to inhalation of food and vomit; I50.31 Acute diastolic (congestive) heart failure; G93.40 Encephalopathy, unspecified; E87.0 Hyperosmolality and hypernatremia; J98.11 Atelectasis; E80.6 Other disorders of bilirubin metabolism; R74.0 Nonspecific elevation of levels of transaminase and lactic acid dehydrogenase [LDH]; Z60.2 Problems related to living alone; E27.9 Disorder of adrenal gland, unspecified; D69.6 Thrombocytopenia, unspecified; R41.0 Disorientation, unspecified; D72.829 Elevated white blood cell count, unspecified; E87.6 Hypokalemia; E83.42 Hypomagnesemia; I48.2 Chronic atrial fibrillation; R31.0 Gross hematuria; K26.9 Duodenal ulcer, unspecified as acute or chronic, without hemorrhage or perforation; Z80.3 Family history of malignant neoplasm of breast; Z79.82 Long term (current) use of aspirin; Z79.899 Other long term (current) drug therapy; Z80.1 Family history of malignant neoplasm of trachea, bronchus and lung

== ENCOUNTER 2019-06-30 11:34 | Inpatient (IN) | payer OTHER, MEDICAID ==
[~2019-06-30] VITALS: Ht 170.2 cm; Wt 67.0 kg
[~2019-06-30 11:34] MED LIST: APAP650 PO; AUGMENTIN 875-1 EACH PO; CARDIZEM60 MG PO; CEFDINIR300 MG PO; DILTIAZEM 24HR180 M3 PO; ELIQUIS5 MG PO; IPRAT-ALBUT 0.5-3 ML INH; LEVAQUIN 500 M500 M2 PO; PROTONIX40 M1 PO
[2019-06-30 11:37] VITALS: BP 131/80
[2019-06-30 12:14] LABS: HEMATOCRIT 31.7 % (37.0-47.0); HEMOGLOBIN 10.7 gm/dL (12.0-15.0); MCH 29.1 pg (26.0-34.0); MCHC 33.8 g/dL (28.0-37.0); MCV 86.1 fL (80.0-100.0); MPV 8.2 fl. (7.2-11.1); NUCLEATED RBCS 0 /100WBC; PLATELET COUNT* 215 thou/uL (150-400); RBC 3.69 mil/uL (4.20-5.00); RDW-CV 14.5 % (10.5-14.5); WBC 9.3 thou/uL (4.0-11.0)
[2019-06-30 12:31] LABS: ANION GAP 10 mmol/L (7-16); APTT 26.6 Seconds (25.0-31.3); BUN 6 mg/dL (7-18); CALCIUM 8.6 mg/dL (8.5-10.1); CHLORIDE 106 mmol/L (98-107); CO2 28 mmol/L (21-32); CREATININE 0.6 mg/dL (0.6-1.3); GLUCOSE 112 mg/dL (70-99); INR 1.1; PROTIME 10.9 Seconds (9.20-11.50); SODIUM 144 mmol/L (136-145)
[2019-06-30 12:33] LABS: POTASSIUM 2.5 mmol/L (3.5-5.1)
[2019-06-30 12:41] LABS: ALBUMIN 2.4 g/dL (3.4-5.0); ALKALINE PHOSPHATASE 155 U/L (46-116); NT-PRO BRAIN NAT PEPTIDE 1886 pg/mL (<300); SGOT 26 U/L (15-37); SGPT 39 U/L (30-65); TOTAL BILIRUBIN 0.5 mg/dL (<0.1-1.0); TOTAL PROTEIN 6.1 g/dL (6.4-8.2); TROPONIN-I LEVEL <0.06 ng/mL (<0.06)
[2019-06-30 12:55] LABS: ABSOLUTE LYMPHOCYTES 1.4 thou/uL (0.8-5.3); ABSOLUTE MONOCYTES 0.8 thou/uL (0.0-1.2); ABSOLUTE NEUTROPHILS 7.1 thou/uL (1.6-8.1)
[2019-06-30 13:00] LABS: PLATELET ESTIMATE ADEQUATE
[2019-06-30 13:16] LABS: URINE BILIRUBIN NEGATIVE (Negative); URINE BLOOD 2+ (Negative); URINE CLARITY CLEAR; URINE COLOR STRAW; URINE GLUCOSE-RANDOM NEGATIVE (Negative); URINE KETONES NEGATIVE (Negative); URINE LEUKOCYTES-REFLEX NEGATIVE (Negative); URINE NITRITE-REFLEX NEGATIVE (Negative); URINE PROTEIN NEGATIVE (Negative); URINE UROBILINOGEN 0.2 E.U./dl (0.2-1.0)
[2019-06-30] MEDS ORDERED: IPRAT-ALBUT 0.5-3 ML PO (13:27)
[2019-06-30] MEDS ORDERED: APAP650 PO (13:29)
[2019-06-30] MEDS ORDERED: LOPERAMIDE 2 MG2 M1 PO (13:30)
[2019-06-30 13:36] LABS: SQUAMOUS 4-10 Moderate /LPF (0-3)
[2019-06-30 13:37] LABS: BACTERIA-REFLEX 1-9 Few /HPF (None Seen); CASTS None Seen /LPF (None Seen); CRYSTALS None Seen /LPF (None Seen); MUCUS None Seen strn/LPF (None Seen); URINE RBC 3-10 Few /HPF (0-2); URINE WBC-REFLEX 0-5 Rare /HPF (0-5)
[2019-06-30 16:58] VITALS: BP 144/78
[2019-06-30 17:29] VITALS: BP 138/71
--- NOTE | 2019-06-30 18:46 | NUR ---
RECIEVED REPORT ON PT FROM ED NURSE. PT ASSESSMENT COMPLETED CHARTED. SON AT [facility] DURING ASSESSMENT. PT EDUCATED ON CARE PLAN. NEEDS REEFORCEMENT ON CARE PLAN. PT NEEDED REORIENTATION ON PLACE AND SITUATION.
--- NOTE | 2019-06-30 18:57 | NUR ---
I HAVE REVIEWED AND AGREE WITH THE ADMISSION DOCUMENTATION OF RINA Howell RN ON 06/30/19
[2019-06-30 20:00] VITALS: BP 134/72
[2019-07-01] VITALS: BP 125/65
--- NOTE | 2019-07-01 02:01 | NUR ---
PT IMPULSIVE GETTING OOB WITH IV LINE PULLING. PTS ROOM CHGD FROM 206 TO 213 ACROSS FROM NRS STATIOM. PT INCREASING CONFUSION. GETTING COMBATIVE AND HITTING STAFF. SECURITY CALLED. DR CALHOUN NOTIFIED. HALDOL AND ATIVAN ORDERED. PT GIVEN 4MG HALDOL AND 1MG ATIVAN. PT RESTING QUIETLY NOW. NS AT 70MG/HR. TELEMETRY SHOWS AFIB. PERIPHERAL IV DC'D PER PT. RESTARTED IN R FOREARM.
[2019-07-01 04:00] VITALS: BP 109/62
[2019-07-01 04:45] LABS: HEMATOCRIT 27.4 % (37.0-47.0); HEMOGLOBIN 9.3 gm/dL (12.0-15.0); MCH 29.5 pg (26.0-34.0); MCHC 33.9 g/dL (28.0-37.0); MPV 8.8 fl. (7.2-11.1); RBC 3.15 mil/uL (4.20-5.00); RDW-CV 14.5 % (10.5-14.5); WBC 7.3 thou/uL (4.0-11.0)
[2019-07-01 04:59] LABS: ALBUMIN 2.1 g/dL (3.4-5.0); CALCIUM 8.4 mg/dL (8.5-10.1); CREATININE 0.6 mg/dL (0.6-1.3); MAGNESIUM 1.5 mg/dL (1.8-2.4); TOTAL BILIRUBIN 0.4 mg/dL (<0.1-1.0); TOTAL PROTEIN 5.3 g/dL (6.4-8.2)
[2019-07-01 05:07] LABS: POTASSIUM 2.7 mmol/L (3.5-5.1)
[2019-07-01 08:30] VITALS: BP 154/79
--- NOTE | 2019-07-01 11:33 | EKG ---
[place] [address] ELECTROCARDIOGRAM REPORT Name: RAVEN CROSS Mart Room: [address] ADM IN [facility]#: [id number] Admission: 06/30/19 Attend Phys: Alec Reed MD Discharge: Date of : 36 Report #: [id number] THIS REPORT FOR: //name// [facility] ED Test Date: 2019-06-30 Test Time: 12:03:02 Pat Name: RAVEN CROSS Department: Room: [facility] Gender: F Strategic Sourcing Specialist: MIGUELINA Puente : 1940 Requested By: Nasreen Carrillo Order Number: [id number] MD: Kang Howard Measurements Intervals [place] Rate: 80 P: RI: QRS: -12 QRSD: 87 T: 198 QT: 352 QTc: 406 Interpretive Statements Atrial fibrillation Low voltage, precordial leads Nonspecific repol abnormality, diffuse leads Compared to ECG 06/01/2019 09:56:23 no change Electronically Signed On 07-01-2019 11:32:50 CDT by Kang Howard [email or web address] <ELECTRONICALLY SIGNED> By: Kang Howard MD, [facility] 07/01/19 1132 1203 1203 Kang Howard MD, [facility] /EPI
[2019-07-01 11:34] VITALS: BP 145/86
[2019-07-01 16:00] VITALS: BP 133/78
--- NOTE | 2019-07-01 18:47 | NUR ---
assumed pt care at 0730, full assesment done as charted. pt oriented x2-4, varing throught the shift. pt would not open eyes for staff this am, but would carry on confused conversations. pt incont B/B this am, caban placed to start 24 hr urine collection. notified of late start and verbalized ok to do so. pt tolerated caban placement well. pt ate well this afternoon. up for walk this evening. has had multiple loose stools this shift, sample sent for cdiff. pt placed in isolation. fall precautions in place. call light in reach but pt does not use it despide reviewed its use multiple times. pt yells out when needing something. pts son in this afternoon. Skin bipsy done. pt remians calm this evening. will continue to monitor.
[2019-07-01 20:54] VITALS: BP 140/71
[2019-07-02] VITALS: BP 131/68
--- NOTE | 2019-07-02 05:33 | NUR ---
PT IS ABLE TO COMMUNICATE HER NEEDS TO STAFF WITH DIFFICULTY; SHE IS FREQUENTLY CONFUSED, IMPULSIVE, AND ORIENTED ONLY TO HERSELF. SHE HAS DENIED THE NEED FOR PAIN MEDICATION UP TO THIS TIME. GLENN IS PATENT. 24HR URINE COLLECTION IN PROGRESS; COMPLETED AT 11:00 TODAY. SPECIAL ISOLATION FOR PENDING C.DIFF. TESTING MAINTAINED.
--- NOTE | 2019-07-02 07:10 | NUR ---
CHANGE OF SHIFT, BEDSIDE REPORT GIVEN PATIENT SEEN AT BEDSIDE, IN BED ASLEEP ASSUMED PATIENT CARE
[2019-07-02 08:00] VITALS: BP 137/79
[2019-07-02 11:08] LABS: ANA INTERPRETATION Positive (Negative)
[2019-07-02 12:28] VITALS: BP 137/80
--- NOTE | 2019-07-02 14:17 | NUR ---
Pt is A&Ox1, spoke with Pt's son via phone. Pt is a LTC resident at [facility], spoke with Julia at [place] p:[phone] f:[phone] and confirmed that Pt is able to return at [facility]. CM faxed updated clinical info. Pt is independent with mobility, has a walker that she can use if needed. Supportive children. Following.
[2019-07-02 16:47] VITALS: BP 129/51
[2019-07-02 18:06] LABS: URINE PROTEIN (MG/DL) 9.1 mg/dL (Not Estab.)
[2019-07-02 21:08] VITALS: BP 111/65
[2019-07-02 23:57] VITALS: BP 123/77
[2019-07-03 05:08] LABS: HEMATOCRIT 30.9 % (37.0-47.0); HEMOGLOBIN 10.4 gm/dL (12.0-15.0); MCH 29.9 pg (26.0-34.0); MCHC 33.6 g/dL (28.0-37.0); MPV 8.7 fl. (7.2-11.1); RBC 3.47 mil/uL (4.20-5.00); RDW-CV 14.8 % (10.5-14.5); WBC 7.9 thou/uL (4.0-11.0)
[2019-07-03 05:31] LABS: ALBUMIN 2.1 g/dL (3.4-5.0); CALCIUM 8.8 mg/dL (8.5-10.1); CREATININE 0.7 mg/dL (0.6-1.3); MAGNESIUM 2.2 mg/dL (1.8-2.4); POTASSIUM 3.9 mmol/L (3.5-5.1); TOTAL BILIRUBIN 0.7 mg/dL (<0.1-1.0); TOTAL PROTEIN 5.7 g/dL (6.4-8.2)
--- NOTE | 2019-07-03 05:32 | NUR ---
PT IS ABLE TO COMMUNICATE HER NEEDS TO STAFF WITH SOME DIFFICULTY; SHE IS FREQUENTLY CONFUSED. SHE HAS DENIED THE NEED FOR PAIN MEDICATION UP TO THIS TIME. SPECIAL ISOLATION PRECAUTIONS MAINTAINED. GLENN IS PATENT.
--- NOTE | 2019-07-03 07:15 | NUR ---
CHANGE OF SHIFT BEDSIDE REPORT GIVEN PATIENT SEEN IN BED ASLEEP
[2019-07-03 08:00] VITALS: BP 131/86
[2019-07-03 12:30] VITALS: BP 113/63
--- NOTE | 2019-07-03 15:07 | PATH ---
[facility] [address] [place] [address] PATHOLOGY RPT PROCEDURE Name: JACQUIE CROSS Room: [address] IN .R.#: [id number] Admission: 06/30/19 Date of : 36 Discharge: Report #: [id number] Path Case #: [id number] LCA Accession Number: [id number] . 01 Material submitted: . leg - RIGHT LOWER LEG. Modifiers: right, lower . 01 Clinical history: . Acute diverticulosis, adrenal syndrome, A. fib Macular rash, both lower extremities. 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 . 02 Diagnosis: Skin, right lower leg, biopsy: - Leukocytoplastic vasculitis (see comment). (SAS:karan; 07/03/2019) TATYANA/07/03/2019 . 02 Comment: Results phoned to Dr. Calhoun at 1:40 p.m. on July 03, 2019. 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 02 Electronically signed: . Jodi Anderson MD, Pathologist NPI- [id number] . 01 Gross description: . Received in formalin, labeled "Jacquie Cross, right lower leg BX", is an unoriented ellipse of sheikh-white skin measuring 1.1 x 0.2 cm with underlying disrupted subcutaneous tissue excised to a depth of 0.2 cm. The resection margins are inked black. Serially sectioned into 4 pieces and entirely submitted in A1-A2 with tips in A2. (SWS; 07/02/2019) SHS/SHS . 02 Microscopic: . Multiple levels of a sectioned skin biopsy show situated around small vessels of the capillary-venular vascular plexus an infiltrate of neutrophils. Neutrophils undergo degeneration of nuclei (leukocytoclasia). There are perivascular deposits of fibrin. Extravasated erythrocytes are present around vessels and between collagen bundles. 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 02 Pathologist provided ICD-10: L95.8 . 02 CPT . 125365 [place] [address] PATHOLOGY RPT PROCEDURE Name: JACQUIE CROSS Room: [address] ADM IN M.R.#: [id number] Admission: 06/30/19 Date of : 36 Discharge: Report #: [id number] Path Case #: [id number] Specimen Comment: A courtesy copy of this report has been sent to Specimen Comment: [phone], . Specimen Comment: Report sent to / DR CALHOUN Performed at: [address], [place] [id number] MD Paco Eagle MD Phone: [phone] Performed at: 02 [facility] [address] [id number] MD Jodi Anderson MD Phone: [phone]
[2019-07-03 19:07] LABS: ANA INTERPRETATION Negative (())
[2019-07-03 19:50] VITALS: BP 143/72
[2019-07-04] VITALS (15 sets, daily range): BP systolic 118–155; BP diastolic 61–83
--- NOTE | 2019-07-04 06:37 | NUR ---
VSS. SEE MAR. SEE CHARTING. FALL PRECAUTIONS IN PLACE. HOURLY ROUNDING FOR SAFETY.
[2019-07-04 07:12] LABS: HEPATITIS B SURFACE AG Negative (Negative)
[2019-07-04 09:08] LABS: DOPAMINE < 30 pg/mL (0-48); EPINEPHRINE 44 pg/mL (0-62); NOREPINEPHRINE 381 pg/mL (0-874)
--- NOTE | 2019-07-04 12:43 | CON ---
[address] [address] CONSULTATION Name: AMERICARAVEN Mart Room: [address] IN .R.#: [id number] Admission: 06/30/19 Attend Phys: Alec Reed MD Discharge: Date of : 36 Report #: [id number] THIS REPORT FOR: //name// CC: FAM physician/PCP Alec Reed DATE OF SERVICE: 07/03/2019 INFECTIOUS DISEASE CONSULTATION ATTENDING PHYSICIAN: Alec Reed MD REASON FOR EVALUATION: C. diff colitis, vasculitis. HISTORY OF PRESENT ILLNESS: Chart reviewed, patient examined. This is an 78-year-old female with a history of recent admission with abdominal pain, underwent laparoscopic cholecystectomy on 06/01. She is unable to give too much details of her history due to apparently some dementia. She was readmitted earlier this week on 06/30 with complaints of bilateral lower extremities, symmetrical, non-painful and not particularly purpuric-type eruption. Biopsy has been obtained, awaiting those results. On further evaluation, felt to have some loose stools. C. diff was collected, it was found to be PCR positive. She was started on oral vancomycin 125 mg p.o. 4 times a day. She denies abdominal-related complaints at this point. She is quite encephalopathic, lethargic to the point of somnolence. Denies any significant dyspnea. It is not clear if she is eating very much. ALLERGIES: None known. MEDICATIONS: Include lactase, oral vancomycin, risperidone, triamcinolone, pantoprazole, ondansetron, ipratropium and albuterol inhaler, loperamide. 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 SOCIAL HISTORY: Nonsmoker, no ethanol, no illicit drug use. FAMILY HISTORY: Noncontributory. REVIEW OF SYSTEMS: Not reliably obtained. PHYSICAL EXAMINATION: GENERAL: She is lethargic to somnolent, briefly arouses. She is unable to give any details. She is in knuz-kd-jqgnejck distress, appears [place] [address] CONSULTATION Name: RAVEN CROSS Room: [address]#: [id number] Admission: 06/30/19 Attend Phys: Alec Reed MD Discharge: Date of : 36 Report #: [id number] VITAL SIGNS: Temperature 98.4, pulse 64, respirations 16, blood pressure 113/63. SKIN: Warm, dry. HEENT: Normocephalic. NECK: Supple. LUNGS: Diminished breath sounds. I do not appreciate any wheezes or coarseness. HEART: Regular. Borderline bradycardic. I do not appreciate any appreciable murmur. ABDOMEN: Soft. There are no peritoneal signs. Nontender. EXTREMITIES: Bilateral lower extremities have purpuric-type eruption. It is not palpable, seems to be limited to below the knees, involving the pretibial sites, primarily no ulcerations, no bullous lesions. GENITOURINARY AND RECTAL: Deferred. LABORATORY DATA: Initial followup chest x-ray showed no acute process. PT of 10.1, INR of 1.1. Electrolytes: Sodium 144, potassium 2.5, chloride 106, bicarbonate is 28, anion gap of 10, BUN and creatinine 6 and 0.6, glucose of 112. Liver functions are unremarkable with the exception of alkaline phosphatase, mildly elevated at 155. Total protein 6.1. Albumin of 2.4. Estimated GFR of 96. CBC: White count initially 9.3, H and H 10.7 and 31.7, platelets of 215. Differential, generally unremarkable. No particular abnormal morphology noted. Sed rate of 33. Urinalysis, 0-[address] abdomen and pelvis was done at admission. There was question of some mild diverticulitis involving the distal descending colon and proximal sigmoid colon. Surgical changes of cholecystectomy, increase in size of the low density left adrenal nodule, raises question of metastatic disease. Lactic acid 1.0. C. diff by PCR was positive. Arterial Doppler, right upper extremity showed no evidence of DVT. Skin biopsy pathology leukocytoclastic vasculitis. ASSESSMENT AND PLAN: Suspected Clostridium difficile colitis. We will continue oral vancomycin. At this point, it is difficult to ascertain whether there is a connection with the rash, I suspect not. She is quite tenuous at this point. We will monitor expectantly. Again at risk for nosocomial-related infectious complications, added topical corticosteroid, may consider systemic steroids as well. <ELECTRONICALLY SIGNED> By: Ajit Buckley MD 07/04/19 1243 1515 0124Jogregg Buckley MD /nt
--- NOTE | 2019-07-04 17:47 | NUR ---
RECEIVED REPORT FROM WILL AND ASSUMED CARE OF PT @ 1331.PT IS A/O X3,VSS,TRACING AFIB ON THE MONITOR.IV PATENT AND SALINE LOCKED.NPO STATUS MAINTAINED FOR ADRENAL BIOPSY.BIOPSY COMPLETED.PT IS CALM AND COOPERATIVE WITH NO C/O PAIN.ISOLATION MAINTAINED. PT SWITCHED TO MED-SURG STATUS.BLADDER SCAN COMPLETED AND STRAIGHT CATH DUE TO PT NOT VOIDING THIS SHIFT.HOURLY ROUNDING COMPLETED FOR PT SAFETY.CALL LIGHT AND FALL PRECAUTIONS IN PLACE.WILL CONTINUE TO MONITOR FOR DURATION OF SHIFT.
[2019-07-05 00:53] VITALS: BP 131/65
--- NOTE | 2019-07-05 07:44 | NUR ---
ASSUMED PT CARE AT 1930. ASSESSMENT COMPLETED CHARTED. PT RESTING IN BED AT THIS TIME. PT YELLED OUT A COUPLE TIMES DURING THE NIGHT TO HAVE US GATHER DISHES AT HER HOUSE. NO C/O PAIN OR DISCOMFORT. [id number] COMPLETED CHARTED. NOTICED PT HADNT URINATED ALL NIGHT AND BLADDER SCANNED HER TO REVEAL 672ML OF FLUID. NOTIFIED AND N.N.O. WILL CONTINUE TO MONITOR.
[2019-07-05 08:00] VITALS: BP 144/83
[2019-07-05 08:46] VITALS: BP 144/83
[2019-07-05 12:11] LABS: URINE DOPAMINE 79 ug/L (Undefined); URINE EPINEPHRINE 3 ug/L (Undefined); URINE NOREPINEPHRINE 30 ug/L (Undefined)
[2019-07-05 16:00] VITALS: BP 139/88
--- NOTE | 2019-07-05 18:12 | NUR ---
VSS, ASSUMED CARE IN THE AM, ASSESSMENT PERFORMED AND CHARTED, FALL PRECAUTIONS IN PLACE AND CALL LIGHT IN REACH, PT IS A&O4 AND IS MED-SURG STATUS, PT IS ON RA AND IS CONFUSED AND FULLS ON IV AND CLIMBS OUT OF THE BED, PT HAS BEEN BLADDER SCANED SEVERAL TIMES TODAY AND STRIAGHT CATHED AT THIS TIME I HAVE PLACED A ELIZABETH CATH, EILL FOLLOW WITH PLAN OF CARE.
[2019-07-05 20:00] VITALS: BP 124/65
[2019-07-06] VITALS: BP 139/72
[2019-07-06 04:00] VITALS: BP 125/48
--- NOTE | 2019-07-06 08:12 | NUR ---
ASSUMED PT CARE AT 1930. ASSESSMENT COMPLETED CHARTED. UNABLE TO MAKE SOME NEEDS KNOWN. [id number] COMPLETED CHARTED. PT RESTING IN BED AT THIS TIME. VSS. PT PLEASENT TO STAFF, ELIZABETH DRAINING YELLOW URINE WITH NO ISSUES. WILL CONTINUE TO MONITOR.
[2019-07-06] MEDS ORDERED: FIRVANQ50 MG/1 ML PO (09:35)
[2019-07-06] MEDS ORDERED: TRIAMCINOLONE A80 G2 TOP (09:35)
[2019-07-06] MEDS ORDERED: ACIDOPHILUS1 EAC4 PO (09:35)
--- NOTE | 2019-07-06 11:52 | NUR ---
Nutrition: Pt admitted with rash, afib. Recent aayush. Dementia, adrenal mass, c. diff. Seen for LOS. Possible discharge today. Per [employer], wt has been trending downward. Today's wt 147#. Regular diet ordered. Pt confused. Albumi 2.1, prealb 13.8. If pt does not discharge, recommend Ensure oral supplement for added protein and nutrition and wt maintenance. Mild risk. Will follow if not dischrged, 07/11/19.
[2019-07-06 13:11] VITALS: BP 125/48
[2019-07-06] MEDS ORDERED: FLOMAX0.4 MG PO (14:09)
--- NOTE | 2019-07-09 13:07 | PATH ---
[address] [address] PATHOLOGY RPT PROCEDURE Name: JACUQIE CROSS Room: [address] IN .R.#: [id number] Admission: 06/30/19 Date of : 36 Discharge: 07/06/19 Report #: [id number] Path Case #: [id number] LCA Accession Number: [id number] . 01 Material submitted: . adrenal gland - LEFT ADRENAL MASS. Modifiers: left . 01 Clinician provided ICD-10: I77.6 G92 . 01 Clinical history: . Left adrenal mass, arthritis, unspecified . 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 - See comment. (AFSANEH:pit; 07/09/2019) QTP/07/09/2019 . 02 Comment: The core biopsies show a predominance of neoplastic cells with prominent foamy cytoplasm and generally centrally located round nuclei present in an organoid pattern with focal areas of smaller cells having amphophilic cytoplasm and ovoid nuclei as well as areas of smaller cells with more eosinophilic cytoplasm. There is a suggestion of a capsule at the edge of several cores. There is no necrosis and no significant hemorrhage and mitosis are unable to be identified. A panel of properly controlled immunohistochemical stains performed on A1 show the neoplastic cells to have the following results: Inhibin: Focal weak positive Vimentin: Focal patchy positive BRANT: Focal equivocally positive Calretinin: Patchy weak positive PAX 8: Negative Reticulin: Highlights reticulin framework . Additional immunohistochemical stains performed on A2 show the following results: Chromogranin: Focal strong positive MART-1 (Melan A): Positive . 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 [address] PATHOLOGY RPT PROCEDURE Name: AMERICAJACQUIE M Room: [address] IN [facility]#: [id number] Admission: 06/30/19 Date of : 36 Discharge: 07/06/19 Report #: [id number] Path Case #: [id number] Preliminary findings discussed with Dr. Reed at approximately 0930 on 07/06/2019. Reviewed with Dr. Siddhartha Farley who agrees with the diagnosis. (AFSANEH:pit; 07/09/2019) . 02 Electronically signed: . Jack Nichols MD, Pathologist NPI- [id number] . 01 Gross description: . Received in formalin labeled "Black, Jacquie, left adrenal mass," are 5 distinct needle cores of sheikh soft tissue ranging from 0.3 to 1.5 cm in length and measuring less than 0.1 cm each in diameter. The specimen is submitted entirely in cassettes A1 through A3. (TSD; 07/04/2019) TOB/TOB . 02 Pathologist provided ICD-10: D49.7 . 02 CPT . 300912, R94829, W26208, 998724 Specimen Comment: A courtesy copy of this report has been sent to Specimen Comment: [phone]. Specimen Comment: Report sent to Performed at: [address], [place] [id number] MD Paco Eagle MD Phone: [phone] Performed at: 02 [facility] [address], [place], [place] [id number] MD Jack Nichols MD Phone: [phone]
== END 2019-07-06 15:24 | DRG 545 ==
LOC: M.ERS 11:34 → M.TBA-ER 15:36 → M.2W 15:36
PROVIDERS: Physician Assistant; Specialist; ADMIT Internal Medicine
PROC: 0JBN0ZX Excision of Right Lower Leg Subcutaneous Tissue and Fascia, Open Approach, Diagnostic (ICD-10-PCS; principal; 2019-07-01)
PROC: 0GB23ZX Excision of Left Adrenal Gland, Percutaneous Approach, Diagnostic (ICD-10-PCS; 2019-07-04)
DX: I77.6 Arteritis, unspecified (principal); G92 Toxic encephalopathy; I50.32 Chronic diastolic (congestive) heart failure; K57.92 Diverticulitis of intestine, part unspecified, without perforation or abscess without bleeding; I42.9 Cardiomyopathy, unspecified; A04.72 Enterocolitis due to Clostridium difficile, not specified as recurrent; I48.91 Unspecified atrial fibrillation; K21.9 Gastro-esophageal reflux disease without esophagitis; D35.00 Benign neoplasm of unspecified adrenal gland; E87.6 Hypokalemia; R31.9 Hematuria, unspecified; F03.90 Unspecified dementia, unspecified severity, without behavioral disturbance, psychotic disturbance, mood disturbance, and anxiety; R33.9 Retention of urine, unspecified; Z90.49 Acquired absence of other specified parts of digestive tract; Z85.118 Personal history of other malignant neoplasm of bronchus and lung; Z80.3 Family history of malignant neoplasm of breast; Z79.899 Other long term (current) drug therapy

== ENCOUNTER 2019-08-03 10:40 | Inpatient (IN) | payer OTHER, MEDICAID ==
[~2019-08-03] VITALS: Ht 152.4 cm; Wt 68.9 kg
[~2019-08-03 10:40] MED LIST changes: +ACIDOPHILUS1 EAC4 PO; +FIRVANQ50 MG/1 ML PO; +FLOMAX0.4 MG PO; +IPRAT-ALBUT 0.5-3 ML PO; +LOPERAMIDE 2 MG2 M1 PO; +TRIAMCINOLONE A80 G2 TOP
[2019-08-03 10:46] VITALS: BP 171/91
[2019-08-03 11:08] LABS: URINE BILIRUBIN NEGATIVE (Negative); URINE BLOOD 3+ (Negative); URINE CLARITY SL CLOUDY; URINE COLOR YELLOW; URINE GLUCOSE-RANDOM NEGATIVE (Negative); URINE KETONES NEGATIVE (Negative); URINE LEUKOCYTES-REFLEX 1+ (Negative); URINE NITRITE-REFLEX NEGATIVE (Negative); URINE PROTEIN TRACE (Negative); URINE UROBILINOGEN 0.2 E.U./dl (0.2-1.0)
[2019-08-03 11:20] LABS: SQUAMOUS 0-3 Few /LPF (0-3)
[2019-08-03 11:21] LABS: BACTERIA-REFLEX >30 Many /HPF (None Seen); MUCUS 0-3 Light strn/LPF (None Seen); URINE WBC-REFLEX 6-15 Few /HPF (0-5)
[2019-08-03 11:22] LABS: CASTS None Seen /LPF (None Seen); CRYSTALS None Seen /LPF (None Seen)
[2019-08-03 11:36] LABS: ABSOLUTE EOSINOPHILS 0.1 thou/uL (0.0-0.7); ABSOLUTE LYMPHOCYTES 1.9 thou/uL (0.8-5.3); ABSOLUTE MONOCYTES 0.7 thou/uL (0.0-1.2); ABSOLUTE NEUTROPHILS 4.4 thou/uL (1.6-8.1); BASOPHILS 0.4 %; EOSINOPHILS 0.7 %; HEMATOCRIT 28.2 % (37.0-47.0); HEMOGLOBIN 9.5 gm/dL (12.0-15.0); LYMPHOCYTES 26.7 %; MCH 29.8 pg (26.0-34.0); MCHC 33.5 g/dL (28.0-37.0); MCV 88.7 fL (80.0-100.0); MONOCYTES 10.2 %; MPV 8.5 fl. (7.2-11.1); NUCLEATED RBCS 0 /100WBC; PLATELET COUNT* 144 thou/uL (150-400); RBC 3.18 mil/uL (4.20-5.00)
[2019-08-03 11:54] LABS: ANION GAP 8 mmol/L (7-16); BUN 4 mg/dL (7-18); CALCIUM 8.1 mg/dL (8.5-10.1); CHLORIDE 107 mmol/L (98-107); CO2 29 mmol/L (21-32); CREATININE 0.8 mg/dL (0.6-1.3); GLUCOSE 103 mg/dL (70-99); INR 1.1; PROTIME 11.4 Seconds (9.20-11.50); SODIUM 144 mmol/L (136-145)
[2019-08-03 11:57] LABS: POTASSIUM 2.4 mmol/L (3.5-5.1)
[2019-08-03 12:05] LABS: ALBUMIN 2.7 g/dL (3.4-5.0); ALKALINE PHOSPHATASE 136 U/L (46-116); NT-PRO BRAIN NAT PEPTIDE 3443 pg/mL (<300); SGPT 21 U/L (30-65); TOTAL BILIRUBIN 0.6 mg/dL (<0.1-1.0); TOTAL PROTEIN 5.9 g/dL (6.4-8.2); TROPONIN-I LEVEL <0.06 ng/mL (<0.06)
[2019-08-03 12:14] LABS: SGOT 22 U/L (15-37)
--- NOTE | 2019-08-03 15:03 | EKG ---
[place] [address] ELECTROCARDIOGRAM REPORT Name: RAVEN CROSS Room: [address] ADM IN [facility]#: [id number] Admission: 08/03/19 Attend Phys: Debbie Mantilla Discharge: Date of : 36 Report #: [id number] THIS REPORT FOR: //name// [facility] ED Test Date: 2019-08-03 Test Time: 11:09:41 Pat Name: RAVEN CROSS Department: Room: [facility] Gender: F Operational Risk Analyst: : 1940 Requested By: Aj Tinoco Order Number: [id number] MD: Gray Ellis Measurements Intervals [place] Rate: 96 P: AR: QRS: -18 QRSD: 99 T: 218 QT: 303 QTc: 383 Interpretive Statements Atrial fibrillation Borderline left axis deviation Low voltage, extremity and precordial leads Borderline repolarization abnormality Compared to ECG 06/30/2019 12:03:02 No significant changes Electronically Signed On 08-03-2019 15:02:53 CDT by Gray Ellis [email or web address] <ELECTRONICALLY SIGNED> By: Gray Ellis MD, [facility] 08/03/19 1502 1109 1109 Gray Ellis MD, [facility] /EPI
[2019-08-03 15:08] VITALS: BP 157/84
[2019-08-03 19:45] VITALS: BP 146/88
[2019-08-04 06:35] LABS: HEMATOCRIT 27.4 % (37.0-47.0); HEMOGLOBIN 9.1 gm/dL (12.0-15.0); MCH 29.8 pg (26.0-34.0); MCHC 33.2 g/dL (28.0-37.0); MCV 89.8 fL (80.0-100.0); RBC 3.05 mil/uL (4.20-5.00); RDW-CV 15.9 % (10.5-14.5); WBC 9.3 thou/uL (4.0-11.0)
[2019-08-04 08:45] VITALS: BP 149/82
[2019-08-04 17:33] VITALS: BP 144/78
[2019-08-04 20:50] VITALS: BP 133/41
[2019-08-05 04:13] LABS: HEMATOCRIT 25.2 % (37.0-47.0); HEMOGLOBIN 8.3 gm/dL (12.0-15.0); MCH 29.6 pg (26.0-34.0); MCHC 33.1 g/dL (28.0-37.0); MCV 89.2 fL (80.0-100.0); MPV 8.7 fl. (7.2-11.1); RBC 2.82 mil/uL (4.20-5.00); WBC 7.1 thou/uL (4.0-11.0)
[2019-08-05 04:35] LABS: ALBUMIN 2.2 g/dL (3.4-5.0); CALCIUM 7.8 mg/dL (8.5-10.1); CREATININE 0.8 mg/dL (0.6-1.3); TOTAL BILIRUBIN 0.7 mg/dL (<0.1-1.0); TOTAL PROTEIN 5.3 g/dL (6.4-8.2)
--- NOTE | 2019-08-05 07:44 | CON ---
[address] [address] CONSULTATION Name: [facility] Room: [address] IN .R.#: [id number] Admission: 08/03/19 Attend Phys: Debbie Mantilla Discharge: Date of : 36 Report #: [id number] THIS REPORT FOR: //name// CC: Yfn Pino DATE OF SERVICE: 08/04/2019 INFECTIOUS DISEASE CONSULTATION ATTENDING PHYSICIAN: Giovani Pino DO REASON FOR EVALUATION: Infected decubitus ulcer, also likely has a complicated urinary tract infection, recent diagnosis of Clostridium difficile colitis, potentially early pneumonia. HISTORY OF PRESENT ILLNESS: Chart reviewed, patient examined. 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 diff as well. She was evaluated with a normal lactic acid. Urinalysis showed 6-15 white cells, greater than 30 bacteria. CBC was otherwise fairly unremarkable. Chest x-ray has a question of early left basilar pneumonitis. CT of the abdomen and pelvis notes the area of ulceration just right of the midline, the posterior soft tissues along the coccyx. There is no discrete fluid collection or erosive changes. Prealbumin of 13.1. Blood cultures are sterile thus far. She is empirically started on combination antimicrobial therapy with IV vancomycin as well as ceftriaxone. ALLERGIES: None. CURRENT MEDICATIONS: Include tamsulosin, zolpidem, melatonin, vancomycin, pantoprazole, ceftriaxone, p.r.n. analgesics, antiemetics. PAST MEDICAL HISTORY: As described above, some dementia, history of atrial fibrillation with cardiomyopathy, history of congestive heart failure, reflux, recurrent UTIs, adrenal mass, cholecystectomy. SOCIAL HISTORY: Nonsmoker, no ethanol. FAMILY HISTORY: Noncontributory. REVIEW OF SYSTEMS: Not reliably obtained. PHYSICAL EXAMINATION: GENERAL: She arouses fairly easily. She appears chronically ill, undernourished. She is encephalopathic. [place] [address] CONSULTATION Name: [facility] Room: [address]#: [id number] Admission: 08/03/19 Attend Phys: Debbie Mantilla Discharge: Date of : 36 Report #: [id number] VITAL SIGNS: Temperature 98.6, pulse 85, respirations 20, blood pressure 149/82. SKIN: Warm, dry. HEENT: Normocephalic. Extraocular muscles intact. NECK: Supple. LUNGS: Diminished breath sounds. HEART: Regular. I do not appreciate murmur. ABDOMEN: Soft, nontender, nondistended. There are no peritoneal signs. GENITOURINARY AND RECTAL: Deferred. LABORATORY DATA: Blood cultures sterile thus far. CBC: White count 9.3, H and H 9.1 and 27.4, platelets of 129. Electrolytes: Sodium 144, potassium 2.4, chloride 107, bicarbonate 29, anion gap of 8, BUN and creatinine 4 and 0.8, albumin of 2.7, total protein 5.9, estimated GFR of 69. ASSESSMENT: Coccyx ulcer longstanding, suggested to be complicated by infection at this point, also likely has a urinary tract infection. We will adjust antimicrobial therapy with recent history of Clostridium difficile. We will add oral vancomycin to the IV vancomycin in addition to cefepime substituted for ceftriaxone. Continue wound care. See how she does clinically. At some point, may need debridement of the site. Imaging evidence does not favor deeper infection such as osteomyelitis. We will have to monitor expectantly. Certainly at risk for nosocomial-related infectious complications as well as other complications. <ELECTRONICALLY SIGNED> By: Ajit Buckley MD 08/05/19 [id number] Buckley MD /nt
[2019-08-05 11:29] LABS: CREATININE 0.8 mg/dL (0.6-1.3); MAGNESIUM 1.5 mg/dL (1.8-2.4); POTASSIUM 3.3 mmol/L (3.5-5.1)
[2019-08-05 17:21] VITALS: BP 108/44
[2019-08-06 20:56] LABS: URINE BLOOD 3+ (Negative); URINE CLARITY SL CLOUDY; URINE COLOR BROWN; URINE GLUCOSE-RANDOM NEGATIVE (Negative); URINE KETONES NEGATIVE (Negative); URINE LEUKOCYTES-REFLEX TRACE (Negative); URINE NITRITE-REFLEX NEGATIVE (Negative); URINE PROTEIN 2+ (Negative); URINE SPECIFIC GRAVITY 1.015 (1.005-1.030); URINE UROBILINOGEN 0.2 E.U./dl (0.2-1.0)
[2019-08-06 21:01] LABS: ICTOTEST (BILI CONFIRMATORY) Negative (Negative); URINE BILIRUBIN 1+ (Negative)
[2019-08-06 21:05] LABS: SQUAMOUS 0-3 Few /LPF (0-3); URINE RBC >20 Many /HPF (0-2)
[2019-08-06 21:06] LABS: URINE WBC-REFLEX 0-5 Rare /HPF (0-5)
[2019-08-06 21:07] LABS: BACTERIA-REFLEX 1-9 Few /HPF (None Seen); CASTS None Seen /LPF (None Seen); CRYSTALS None Seen /LPF (None Seen); MUCUS 0-3 Light strn/LPF (None Seen)
[2019-08-07 07:45] VITALS: BP 149/67
[2019-08-07 09:52] LABS: ABSOLUTE EOSINOPHILS 0.1 thou/uL (0.0-0.7); ABSOLUTE LYMPHOCYTES 1.7 thou/uL (0.8-5.3); ABSOLUTE MONOCYTES 0.7 thou/uL (0.0-1.2); ABSOLUTE NEUTROPHILS 2.7 thou/uL (1.6-8.1); BASOPHILS 0.4 %; EOSINOPHILS 1.5 %; HEMATOCRIT 26.5 % (37.0-47.0); HEMOGLOBIN 8.8 gm/dL (12.0-15.0); LYMPHOCYTES 33.5 %; MCH 29.7 pg (26.0-34.0); MCHC 33.3 g/dL (28.0-37.0); MCV 89.2 fL (80.0-100.0); MONOCYTES 13.8 %; MPV 8.2 fl. (7.2-11.1); NUCLEATED RBCS 0 /100WBC; PLATELET COUNT* 138 thou/uL (150-400); POLYS 50.8 %; RBC 2.98 mil/uL (4.20-5.00); RDW-CV 15.9 % (10.5-14.5); WBC 5.2 thou/uL (4.0-11.0)
[2019-08-07 10:11] LABS: CALCIUM 8.4 mg/dL (8.5-10.1); CREATININE 0.8 mg/dL (0.6-1.3); MAGNESIUM 1.7 mg/dL (1.8-2.4); POTASSIUM 3.6 mmol/L (3.5-5.1)
[2019-08-07 16:00] VITALS: BP 146/78
[2019-08-07 20:44] VITALS: BP 108/62
[2019-08-08 08:18] VITALS: BP 123/66
[2019-08-08] MEDS ORDERED: THERA M PLUS T1 EAC2 PO (10:10)
[2019-08-08] MEDS ORDERED: VOLTAREN GEL 1100 G1 TOP (10:10)
[2019-08-08] MEDS ORDERED: IRON325 PO (10:10)
[2019-08-08] MEDS ORDERED: VITAMIN D1000 UNI1 PO (10:10)
[2019-08-08] MEDS ORDERED: CEFUROXIME500 MG PO (10:10)
[2019-08-08] MEDS ORDERED: TRAMADOL 50 MG50 MG PO (10:10)
[2019-08-08] MEDS ORDERED: FIRVANQ50 MG/1 ML PO (10:10)
[2019-08-08] MEDS ORDERED: FLOMAX0.4 MG PO (10:10)
[2019-08-08] MEDS ORDERED: ACETAMINOPHEN325 M1 PO (10:10)
[2019-08-08] MEDS ORDERED: LOPERAMIDE 2 MG2 M1 PO (10:10)
[2019-08-08] MEDS ORDERED: MAGOX 400400 MG PO (10:10)
[2019-08-08 15:25] VITALS: BP 123/66
== END 2019-08-08 15:40 | DRG 592 ==
LOC: M.ERS 10:40 → M.TBA-ER 11:43 → M.ORTHSURG 11:43
PROVIDERS: Family Medicine; Specialist; ADMIT Internal Medicine
DX: L89.152 Pressure ulcer of sacral region, stage 2 (principal); G93.41 Metabolic encephalopathy; N39.0 Urinary tract infection, site not specified; I50.30 Unspecified diastolic (congestive) heart failure; I42.9 Cardiomyopathy, unspecified; N13.30 Unspecified hydronephrosis; E44.0 Moderate protein-calorie malnutrition; I48.91 Unspecified atrial fibrillation; K21.9 Gastro-esophageal reflux disease without esophagitis; F03.90 Unspecified dementia, unspecified severity, without behavioral disturbance, psychotic disturbance, mood disturbance, and anxiety; E87.6 Hypokalemia; L08.9 Local infection of the skin and subcutaneous tissue, unspecified; I25.10 Atherosclerotic heart disease of native coronary artery without angina pectoris; D69.6 Thrombocytopenia, unspecified; B96.89 Other specified bacterial agents as the cause of diseases classified elsewhere; K52.9 Noninfective gastroenteritis and colitis, unspecified; E83.42 Hypomagnesemia; D63.8 Anemia in other chronic diseases classified elsewhere; M19.90 Unspecified osteoarthritis, unspecified site; F25.9 Schizoaffective disorder, unspecified; B96.1 Klebsiella pneumoniae [K. pneumoniae] as the cause of diseases classified elsewhere; Z90.49 Acquired absence of other specified parts of digestive tract; Z80.3 Family history of malignant neoplasm of breast; Z80.1 Family history of malignant neoplasm of trachea, bronchus and lung; Z68.29 Body mass index [BMI] 29.0-29.9, adult; Z79.899 Other long term (current) drug therapy